=== PATIENT | female | born 1990 | race African-American/Black ===

== ENCOUNTER 2016-05-31 14:40 | Emergency (ER) | payer OTHER ==
[~2016-05-31] VITALS: Ht 165.1 cm; Wt 84.8 kg
[~2016-05-31 14:40] MED LIST: BACTRIM,SEPT1 TABLET PO; CELEXA40 MG PO; DEPAKOTE ER500 MG PO; DEPAKOTE250 MG PO; FLAGYL500 MG PO; FLEXERIL10 MG PO; KLONOPIN0.5 M1 PO; NAPROSYN500 MG PO; SEROQUEL100 MG PO; SEROQUEL12.5 MG PO; SEROQUEL200 MG PO; TORADOL10 MG PO; VISTARIL25 MG PO; celexa; depakote; klonopin; seroquel
[2016-05-31] MEDS ORDERED: PAXIL20 MG PO (14:53)
[2016-05-31 15:10] LABS: HEMATOCRIT 31.3 % (36.0-46.0); MCH 29.6 PG (29.0-34.0); MCHC 34.2 G/DL (30.0-36.0); MCV 86.5 FL (83-99); MEAN PLAT.VOLUME 11.1 uM^3 (9.5-12.4); PLATELET COUNT 285 K/uL (156-360); RBC DIS.WIDTH-CV 13.5 % (11.8-14.6); RBC DIS.WIDTH-SD 41.3 % (39-53); RED BLOOD COUNT 3.62 M/uL (3.80-5.20); WHITE BLOOD COUNT 21.8 K/uL (4.1-10.2)
[2016-05-31 15:18] LABS: CHLORIDE 105 mEq/L (99-109); POTASSIUM 3.4 mEq/L (3.7-5.4); SODIUM 138 mEq/L (136-147)
[2016-05-31 15:21] LABS: GLUCOSE 103 mg/dL (70-99)
[2016-05-31 15:22] LABS: ANION GAP 14 MEQ/L (2-14)
[2016-05-31 15:23] LABS: TOTAL BILIRUBIN 0.6 mg/dL (0.0-1.0)
[2016-05-31 15:24] LABS: ALKALINE PHOSPHATASE 118 IU/L (3-129); GFR ESTIMATE (CALCULATED) > 59 mL/min/
[2016-05-31 15:25] LABS: ADD MIUA? YES; BILIRUBIN NEGATIVE; BLOOD LARGE; COLOR DK YELLOW ((YELLOW)); GLUCOSE (STRIP) NEGATIVE; KETONES 15; LEUKOCYTES LARGE; NITRITE POSITIVE; PROTEIN (STRIP) >=300; SPECIFIC GRAVITY 1.013 (1.000-1.030)
[2016-05-31 15:25] LABS: UREA NITROGEN (BUN) 27 mg/dL (9-23)
[2016-05-31 15:34] LABS: QUANTITATIVE HCG < 4.0 MIU/ML
[2016-05-31 15:48] LABS: BACTERIA 2+; CASTS NONE SEEN /LPF; CRYSTALS NONE SEEN; EPITHELIAL CELLS 1+; MUCUS NONE SEEN; RED BLOOD CELLS 0-5 /HPF (0-5); UCUL ADDED? YES; WHITE BLOOD CELLS TNTC /HPF (0-5)
[2016-05-31] MEDS ORDERED: ZOFRAN4 MG PO (16:58)
[2016-05-31] MEDS ORDERED: VENTOLIN HFA18 GM IH (16:58)
[2016-05-31] MEDS ORDERED: LEVAQUIN750 MG PO (16:58)
[2016-05-31] MEDS ORDERED: TYLENOL WITH C1 EACH PO (17:23)
[2016-05-31 17:46] VITALS: BP 119/76
== END 2016-05-31 17:57 | disposition home or self-care (01) ==
LOC: RME 14:40 → EME 14:40 → RME 17:57
DX: N39.0 Urinary tract infection, site not specified (principal); J18.9 Pneumonia, unspecified organism
CPT/HCPCS: 71020; 80053; 81003; 84702; 85027; 87077; 87086; 87186; 94640; 99281; 99284; J2405; J7030

== ENCOUNTER 2016-06-03 19:09 | Inpatient (IN) | payer OTHER ==
[~2016-06-03] VITALS: Ht 165.1 cm; Wt 88.0 kg
[~2016-06-03 19:09] MED LIST changes: +LEVAQUIN750 MG PO; +PAXIL20 MG PO; +TYLENOL WITH C1 EACH PO; +VENTOLIN HFA18 GM IH; +ZOFRAN4 MG PO
[2016-06-03 22:12] LABS: HEMATOCRIT 26.5 % (36.0-46.0); MCH 29.4 PG (29.0-34.0); MCHC 35.1 G/DL (30.0-36.0); MCV 83.9 FL (83-99); MEAN PLAT.VOLUME 10.1 uM^3 (9.5-12.4); PLATELET COUNT 302 K/uL (156-360); RBC DIS.WIDTH-CV 13.9 % (11.8-14.6); RBC DIS.WIDTH-SD 40.5 % (39-53); RED BLOOD COUNT 3.16 M/uL (3.80-5.20); WHITE BLOOD COUNT 17.3 K/uL (4.1-10.2)
[2016-06-03 22:37] LABS: QUANTITATIVE HCG < 4.0 MIU/ML
[2016-06-03 22:42] LABS: CHLORIDE 102 mEq/L (99-109); POTASSIUM 3.1 mEq/L (3.7-5.4); SODIUM 138 mEq/L (136-147)
[2016-06-03 22:44] LABS: GLUCOSE 137 mg/dL (70-99)
[2016-06-03 22:45] LABS: ANION GAP 15 MEQ/L (2-14)
[2016-06-03 22:48] LABS: GFR ESTIMATE (CALCULATED) > 59 mL/min/
[2016-06-03 22:49] LABS: UREA NITROGEN (BUN) 12 mg/dL (9-23)
[2016-06-03] MEDS ORDERED: DEPAKOTE250 MG PO ×2 (23:28)
[2016-06-03] MEDS ORDERED: SEROQUEL12.5 MG PO ×2 (23:28)
[2016-06-03] MEDS ORDERED: DEPAKOTE ER250 MG PO ×2 (23:31)
[2016-06-04] VITALS (8 sets, daily range): BP systolic 115–136; BP diastolic 65–89
[2016-06-04 08:48] LABS: MEAN PLAT.VOLUME 10.6 uM^3 (9.5-12.4); PLATELET COUNT 288 K/uL (156-360)
[2016-06-04 08:53] LABS: Estimated Average Glucose 114 mg/dL (70-123); HEMOGLOBIN A1c (GLYCOHEMOGLOB) 5.6 % HGB (Below 5.7)
[2016-06-04 09:16] LABS: ANION GAP 10 MEQ/L (2-14); CHLORIDE 102 MEQ/L (99-109); GFR ESTIMATE (CALCULATED) > 59 mL/min/; GLUCOSE 125 mg/dL (70-99); SAMPLE HEMOLYSIS CHECK 0; SAMPLE ICTERIC CHECK 0; SAMPLE LIPEMIA CHECK 0; SODIUM 136 MEQ/L (136-147); UREA NITROGEN (BUN) 8 mg/dL (9-23)
[2016-06-04 09:22] LABS: DELETE MACHINE DIFF? YES
[2016-06-04 10:26] LABS: ABS NEUTROPHIL COUNT 7.84; HEMATOCRIT 24.9 % (36.0-46.0); HYPOCHROMASIA 1+; MCH 29.5 PG (29.0-34.0); MCHC 34.9 G/DL (30.0-36.0); MCV 84.4 FL (83-99); MICROCYTOSIS 1+; PLAT.SUFFICIENCY ADEQUATE; RBC DIS.WIDTH-CV 14.1 % (11.8-14.6); RBC DIS.WIDTH-SD 43.2 % (39-53); RED BLOOD COUNT 2.95 M/uL (3.80-5.20); SPHEROCYTES OCC; USER ID BLP; WHITE BLOOD COUNT 15.7 K/uL (4.1-10.2)
[2016-06-04 16:26] LABS: INFLUENZA A VIRAL ANTIGEN NEGATIVE; INFLUENZA B VIRAL ANTIGEN NEGATIVE
[2016-06-04 18:11] LABS: UR CREATININE CONCENTRATION 76.6 MG/DL
[2016-06-05 06:29] LABS: ANION GAP 11 MEQ/L (2-14); CHLORIDE 101 MEQ/L (99-109); GFR ESTIMATE (CALCULATED) > 59 mL/min/; GLUCOSE 87 mg/dL (70-99); SAMPLE HEMOLYSIS CHECK 0; SAMPLE ICTERIC CHECK 0; SAMPLE LIPEMIA CHECK 0; SODIUM 137 MEQ/L (136-147); UREA NITROGEN (BUN) 11 mg/dL (9-23)
[2016-06-05 08:02] VITALS: BP 124/67
[2016-06-05 09:14] LABS: HBSG INDEX 0.16; HIV INDEX 0.11; HIV-1/2 AB/AG COMBO Nonreactive; HPCA INDEX 0.13
[2016-06-05 10:12] LABS: HEMATOCRIT 25.2 % (36.0-46.0); MCH 29.4 PG (29.0-34.0); MCHC 34.5 G/DL (30.0-36.0); MCV 85.1 FL (83-99); MEAN PLAT.VOLUME 10.2 uM^3 (9.5-12.4); PLATELET COUNT 287 K/uL (156-360); RBC DIS.WIDTH-CV 14.5 % (11.8-14.6); RBC DIS.WIDTH-SD 44.6 % (39-53); RED BLOOD COUNT 2.96 M/uL (3.80-5.20); WHITE BLOOD COUNT 19.5 K/uL (4.1-10.2)
[2016-06-05 10:50] LABS: ABS NEUTROPHIL COUNT 14.64; EOSINOPHIL (%) 0.5 % (0-5); EOSINOPHIL COUNT 0.1 K/uL (0-0.3); IMMATURE GRANULOCYTE (%) 6.4 % (0.0-0.7); IMMATURE GRANULOCYTE COUNT 1.3 K/uL; LYMPHOCYTE COUNT 2.4 K/uL (1.0-2.8); MONOCYTE (%) 18.2 % (3-12); MONOCYTE COUNT 3.6 K/uL (0-0.8); NEUTROPHIL (%) 62.4 % (45-76); NEUTROPHIL COUNT 12.2 K/uL (1.8-6.4); PLAT.SUFFICIENCY ADEQUATE; USER ID STC
[2016-06-05 15:21] VITALS: BP 114/61
== END 2016-06-05 17:11 | disposition left against medical advice (07) | DRG 871 ==
LOC: EME 19:09 → 3EAST 06-04 00:27 → EDOF 06-04 00:27 → 3EAST 06-04 02:42
PROVIDERS: Emergency Medicine; Internal Medicine; Internal Medicine Nephrology; Physician Assistant
DX: A41.51 Sepsis due to Escherichia coli [E. coli] (principal); N17.0 Acute kidney failure with tubular necrosis; J18.9 Pneumonia, unspecified organism; Q61.3 Polycystic kidney, unspecified; N10 Acute pyelonephritis; E86.0 Dehydration; F31.9 Bipolar disorder, unspecified; R80.9 Proteinuria, unspecified; E87.6 Hypokalemia; R73.9 Hyperglycemia, unspecified; D64.9 Anemia, unspecified; R10.33 Periumbilical pain; Z91.19 Patient's noncompliance with other medical treatment and regimen; E83.51 Hypocalcemia
CPT/HCPCS: 71020; 74176; 76770; 80048; 80164; 81003; 82570; 83036; 83605; 84100; 84156; 84702; 85025; 85027; 86703; 86803; 87040; 87340; 87502; 94640; 94640 76; 94799; 99202; 99281; 99285; J0696; J1644; J1956; J2270; J2405; J7030; J7050

== ENCOUNTER 2016-06-08 02:28 | Inpatient (IN) | payer OTHER ==
[~2016-06-08] VITALS: Ht 165.1 cm; Wt 82.8 kg
[~2016-06-08 02:28] MED LIST changes: +DEPAKOTE ER250 MG PO
[2016-06-08 03:19] LABS: HEMATOCRIT 27.1 % (36.0-46.0); MCH 28.8 PG (29.0-34.0); MCHC 33.2 G/DL (30.0-36.0); MCV 86.9 FL (83-99); RBC DIS.WIDTH-CV 14.2 % (11.8-14.6); RED BLOOD COUNT 3.12 M/uL (3.80-5.20); WHITE BLOOD COUNT 22.7 K/uL (4.1-10.2)
[2016-06-08 03:21] LABS: MEAN PLAT.VOLUME 9.7 uM^3 (9.5-12.4); PLATELET COUNT 442 K/uL (156-360)
[2016-06-08 03:29] LABS: CHLORIDE 100 mEq/L (99-109); POTASSIUM 4.3 mEq/L (3.7-5.4); SODIUM 135 mEq/L (136-147)
[2016-06-08 03:30] LABS: GLUCOSE 91 mg/dL (70-99)
[2016-06-08 03:32] LABS: ANION GAP 10 MEQ/L (2-14)
[2016-06-08 03:34] LABS: GFR ESTIMATE (CALCULATED) > 59 mL/min/
[2016-06-08 03:35] LABS: UREA NITROGEN (BUN) 12 mg/dL (9-23)
[2016-06-08 05:39] LABS: TROP-I INTERPRETATION NEGATIVE; TROPONIN-I < 0.01 ng/mL (0.0-0.30)
[2016-06-08] MEDS ORDERED: SEROQUEL100 MG PO (07:34)
[2016-06-08 11:31] VITALS: BP 108/64
[2016-06-08 15:45] VITALS: BP 114/70
[2016-06-08 19:43] VITALS: BP 106/64
[2016-06-08 23:43] VITALS: BP 107/69
[2016-06-09 08:00] VITALS: BP 113/74
[2016-06-09 08:15] LABS: ANION GAP 8 MEQ/L (2-14); CHLORIDE 106 MEQ/L (99-109); GFR ESTIMATE (CALCULATED) > 59 mL/min/; GLUCOSE 81 mg/dL (70-99); SAMPLE HEMOLYSIS CHECK 0; SAMPLE ICTERIC CHECK 0; SAMPLE LIPEMIA CHECK 0; SODIUM 139 MEQ/L (136-147); UREA NITROGEN (BUN) 9 mg/dL (9-23)
[2016-06-09 08:16] LABS: POTASSIUM 5.3 MEQ/L (3.7-5.4)
[2016-06-09 08:28] LABS: EOSINOPHIL (%) 1.2 % (0-5); EOSINOPHIL COUNT 0.2 K/uL (0-0.3); HEMATOCRIT 25.1 % (36.0-46.0); IMMATURE GRANULOCYTE (%) 1.8 % (0.0-0.7); IMMATURE GRANULOCYTE COUNT 0.2 K/uL; LYMPHOCYTE COUNT 3.1 K/uL (1.0-2.8); MCH 28.9 PG (29.0-34.0); MCHC 33.1 G/DL (30.0-36.0); MCV 87.5 FL (83-99); MONOCYTE (%) 8.6 % (3-12); MONOCYTE COUNT 1.1 K/uL (0-0.8); NEUTROPHIL (%) 64.7 % (45-76); NEUTROPHIL COUNT 8.5 K/uL (1.8-6.4); PLATELET COUNT 515 K/uL (156-360); RBC DIS.WIDTH-CV 14.7 % (11.8-14.6); RBC DIS.WIDTH-SD 47.2 % (39-53); RED BLOOD COUNT 2.87 M/uL (3.80-5.20)
[2016-06-09 08:29] LABS: WHITE BLOOD COUNT 13.1 K/uL (4.1-10.2)
[2016-06-09 10:06] LABS: FERRITIN 401 NG/ML (10-291); IRON 24 MCG/DL (35-150)
[2016-06-09 15:51] VITALS: BP 94/55
[2016-06-09 20:07] VITALS: BP 112/78
[2016-06-09 23:13] VITALS: BP 116/75
[2016-06-10 02:52] VITALS: BP 117/71
[2016-06-10 07:55] VITALS: BP 114/62
[2016-06-10 09:23] LABS: HEMATOCRIT 26.3 % (36.0-46.0); MCH 28.8 PG (29.0-34.0); MCHC 33.1 G/DL (30.0-36.0); MCV 87.1 FL (83-99); MEAN PLAT.VOLUME 9.9 uM^3 (9.5-12.4); PLATELET COUNT 653 K/uL (156-360); RBC DIS.WIDTH-CV 14.4 % (11.8-14.6); RBC DIS.WIDTH-SD 45.8 % (39-53); RED BLOOD COUNT 3.02 M/uL (3.80-5.20); WHITE BLOOD COUNT 11.9 K/uL (4.1-10.2)
[2016-06-10 11:56] VITALS: BP 119/71
[2016-06-10] MEDS ORDERED: TYLENOL REGULA325 MG PO (15:01)
[2016-06-10] MEDS ORDERED: CEFTIN250 MG PO (15:04)
[2016-06-10 16:31] VITALS: BP 105/64
== END 2016-06-10 18:52 | disposition home or self-care (01) | DRG 689 ==
LOC: EME 02:28 → EDOF 05:27 → 5SOUTH 05:27
PROVIDERS: Emergency Medicine; Hospitalist; Physician Assistant Medical
DX: N39.0 Urinary tract infection, site not specified (principal); J18.9 Pneumonia, unspecified organism; Q61.3 Polycystic kidney, unspecified; D50.9 Iron deficiency anemia, unspecified; F31.9 Bipolar disorder, unspecified
CPT/HCPCS: 71020; 71275; 74000; 80048; 80202; 81003; 82607; 82728; 82746; 83540; 83605; 84466; 84484; 85025; 85027; 87040; 87449; 93005; 99202; 99281; 99285; J0456; J0692; J0696; J1650; J3370; J7030; J7050

== ENCOUNTER 2016-11-02 17:49 | Emergency (ER) | payer OTHER ==
[~2016-11-02] VITALS: Ht 162.6 cm; Wt 82.1 kg
[~2016-11-02 17:49] MED LIST changes: +CEFTIN250 MG PO; +TYLENOL REGULA325 MG PO
[2016-11-02 19:49] LABS: HEMATOCRIT 35.7 % (36.0-46.0); MCH 30.1 PG (29.0-34.0); MCHC 33.3 G/DL (30.0-36.0); MCV 90.4 FL (83-99); MEAN PLAT.VOLUME 10.6 uM^3 (9.5-12.4); PLATELET COUNT 277 K/uL (156-360); RBC DIS.WIDTH-CV 12.1 % (11.8-14.6); RBC DIS.WIDTH-SD 40.1 % (39-53); RED BLOOD COUNT 3.95 M/uL (3.80-5.20); WHITE BLOOD COUNT 7.4 K/uL (4.1-10.2)
[2016-11-02 20:03] LABS: CHLORIDE 107 mEq/L (99-109); POTASSIUM 4.3 mEq/L (3.7-5.4); SODIUM 139 mEq/L (136-147)
[2016-11-02 20:05] LABS: GLUCOSE 77 mg/dL (70-99)
[2016-11-02 20:06] LABS: ANION GAP 11 MEQ/L (2-14)
[2016-11-02 20:07] LABS: TOTAL BILIRUBIN 0.5 mg/dL (0.0-1.0)
[2016-11-02 20:08] LABS: ALKALINE PHOSPHATASE 53 IU/L (3-129)
[2016-11-02 20:09] LABS: GFR ESTIMATE (CALCULATED) > 59 mL/min/
[2016-11-02 20:10] LABS: UREA NITROGEN (BUN) 15 mg/dL (9-23)
[2016-11-02 22:56] LABS: LIPASE 15 U/L (1.0-51.0)
[2016-11-02 23:38] LABS: ADD MIUA? NO; BILIRUBIN NEGATIVE; BLOOD NEGATIVE; COLOR YELLOW ((YELLOW)); GLUCOSE (STRIP) NEGATIVE; KETONES NEGATIVE; LEUKOCYTES NEGATIVE; NITRITE NEGATIVE; PROTEIN (STRIP) NEGATIVE; SPECIFIC GRAVITY 1.015 (1.000-1.030); UCUL ADDED? NO; UROBILINOGEN 0.2 MG/DL (0.2-1.0)
[2016-11-03 00:48] VITALS: BP 142/89
== END 2016-11-03 00:49 | disposition home or self-care (01) ==
LOC: EXP 17:49 → EME 17:49 → EXP 11-03 00:49
DX: O26.891 Other specified pregnancy related conditions, first trimester (principal); R10.31 Right lower quadrant pain; R19.7 Diarrhea, unspecified
CPT/HCPCS: 76801; 80053; 81003; 83690; 84702; 85027; 86900; 86901; 99281; 99283

== ENCOUNTER 2016-11-17 21:31 | Emergency (ER) | payer OTHER ==
[~2016-11-17] VITALS: Ht 162.6 cm; Wt 85.8 kg
[2016-11-17 22:23] LABS: BILIRUBIN NEGATIVE; BLOOD NEGATIVE; COLOR YELLOW ((YELLOW)); GLUCOSE (STRIP) NEGATIVE; KETONES NEGATIVE; LEUKOCYTES NEGATIVE; NITRITE NEGATIVE; PROTEIN (STRIP) 30; SPECIFIC GRAVITY 1.015 (1.000-1.030); UROBILINOGEN 0.2 MG/DL (0.2-1.0)
[2016-11-17 22:26] LABS: ADD MIUA? NO
[2016-11-17 22:47] LABS: HEMATOCRIT 30.2 % (36.0-46.0); MCH 29.7 PG (29.0-34.0); MCHC 33.1 G/DL (30.0-36.0); MCV 89.6 FL (83-99); MEAN PLAT.VOLUME 10.9 uM^3 (9.5-12.4); PLATELET COUNT 263 K/uL (156-360); RBC DIS.WIDTH-CV 12.2 % (11.8-14.6); RBC DIS.WIDTH-SD 39.8 % (39-53); RED BLOOD COUNT 3.37 M/uL (3.80-5.20)
[2016-11-17 23:00] LABS: CHLORIDE 105 mEq/L (99-109); POTASSIUM 3.5 mEq/L (3.7-5.4); SODIUM 136 mEq/L (136-147)
[2016-11-17 23:01] LABS: GLUCOSE 78 mg/dL (70-99)
[2016-11-17 23:03] LABS: ANION GAP 9 MEQ/L (2-14)
[2016-11-17 23:05] LABS: GFR ESTIMATE (CALCULATED) > 59 mL/min/
[2016-11-17 23:06] LABS: UREA NITROGEN (BUN) 11 mg/dL (9-23)
[2016-11-17 23:35] LABS: QUANTITATIVE HCG 39603.2 MIU/ML
[2016-11-18] MEDS ORDERED: REGLAN10 MG PO
[2016-11-18 00:34] VITALS: BP 135/89
== END 2016-11-18 00:37 | disposition home or self-care (01) ==
LOC: EME 21:31
PROVIDERS: Physician Assistant
DX: O26.91 Pregnancy related conditions, unspecified, first trimester (principal); R11.2 Nausea with vomiting, unspecified; Z3A.01 Less than 8 weeks gestation of pregnancy; J45.909 Unspecified asthma, uncomplicated
CPT/HCPCS: 80048; 81003; 84702; 85027; 99281; 99284; J2405; J7030

== ENCOUNTER 2016-11-27 21:54 | Emergency (ER) | payer OTHER ==
[~2016-11-27] VITALS: Ht 162.6 cm; Wt 82.3 kg
[~2016-11-27 21:54] MED LIST changes: +REGLAN10 MG PO
[2016-11-28 00:54] LABS: HEMATOCRIT 29.2 % (36.0-46.0); MCH 30.4 PG (29.0-34.0); MCHC 33.9 G/DL (30.0-36.0); MCV 89.6 FL (83-99); MEAN PLAT.VOLUME 10.4 uM^3 (9.5-12.4); PLATELET COUNT 265 K/uL (156-360); RBC DIS.WIDTH-CV 11.8 % (11.8-14.6); RBC DIS.WIDTH-SD 38.4 % (39-53); RED BLOOD COUNT 3.26 M/uL (3.80-5.20); WHITE BLOOD COUNT 9.5 K/uL (4.1-10.2)
[2016-11-28 01:03] LABS: CHLORIDE 107 mEq/L (99-109); POTASSIUM 3.7 mEq/L (3.7-5.4); SODIUM 137 mEq/L (136-147)
[2016-11-28 01:04] LABS: GLUCOSE 86 mg/dL (70-99)
[2016-11-28 01:06] LABS: ANION GAP 7 MEQ/L (2-14)
[2016-11-28 01:08] LABS: GFR ESTIMATE (CALCULATED) > 59 mL/min/
[2016-11-28 01:09] LABS: UREA NITROGEN (BUN) 10 mg/dL (9-23)
[2016-11-28 01:35] LABS: QUANTITATIVE HCG 134150.6 MIU/ML
[2016-11-28] MEDS ORDERED: PHENERGAN12.5 MG PR (01:35)
[2016-11-28 01:46] VITALS: BP 151/93
== END 2016-11-28 01:47 | disposition home or self-care (01) ==
LOC: EME 21:54
PROVIDERS: Nurse Practitioner Family
DX: O21.0 Mild hyperemesis gravidarum (principal); Z3A.08 8 weeks gestation of pregnancy
CPT/HCPCS: 80048; 84702; 85027; 99281; 99284; J2405; J7030

== ENCOUNTER 2017-03-05 17:35 | Outpatient (CLI) | payer OTHER ==
[~2017-03-05] VITALS: Ht 162.6 cm; Wt 86.2 kg
[~2017-03-05 17:35] MED LIST changes: +PHENERGAN12.5 MG PR
[2017-03-05 17:53] VITALS: BP 135/92
[2017-03-05] MEDS ORDERED: PRENATAL TABLE1 EAC3 PO (18:33)
[2017-03-05 18:44] LABS: ADD MIUA? YES; BILIRUBIN NEGATIVE; BLOOD NEGATIVE; COLOR YELLOW ((YELLOW)); GLUCOSE (STRIP) NEGATIVE; KETONES NEGATIVE; LEUKOCYTES TRACE; NITRITE NEGATIVE; PROTEIN (STRIP) NEGATIVE; SPECIFIC GRAVITY 1.005 (1.000-1.030); UROBILINOGEN 0.2 MG/DL (0.2-1.0)
[2017-03-05 18:53] LABS: BACTERIA RARE /HPF; EPITHELIAL CELLS RARE /HPF; MUCUS NONE SEEN /LPF; RED BLOOD CELLS NONE SEEN /HPF (0-5); UCUL ADDED? YES
[2017-03-05 19:00] LABS: EOSINOPHIL (%) 0.4 % (0-5); IMMATURE GRANULOCYTE (%) 0.4 % (0.0-0.7); INSTRUMENT ABS NEUTROPHIL CT 6.9 K/uL; MCH 30.3 PG (29.0-34.0); MCHC 33.1 G/DL (30.0-36.0); MCV 91.5 FL (83-99); MONOCYTE (%) 6.4 % (3-12); MONOCYTE COUNT 0.6 K/uL (0-0.8); NEUTROPHIL (%) 71.7 % (45-76); NEUTROPHIL COUNT 6.9 K/uL (1.8-6.4); PLATELET COUNT 291 K/uL (156-360); RBC DIS.WIDTH-CV 13.6 % (11.8-14.6); RBC DIS.WIDTH-SD 45.5 % (39-53); RED BLOOD COUNT 2.84 M/uL (3.80-5.20); WHITE BLOOD COUNT 9.6 K/uL (4.1-10.2)
[2017-03-05 19:00] LABS: AMPHETAMINE NEGATIVE (500 ng/mL); BARBITURATES NEGATIVE (200 ng/mL); BENZODIAZEPINES NEGATIVE (150 ng/mL); COCAINE NEGATIVE (150 ng/mL); INTERNAL CONTROLS VALID? YES; METHADONE NEGATIVE (200 ng/mL); METHAMPHETAMINE NEGATIVE (500 ng/mL); OPIATES (MORPHINE) NEGATIVE (100 ng/mL); OXYCODONE NEGATIVE (100 ng/mL); PHENCYCLIDINE NEGATIVE (25 ng/mL); PROPOXYPHENE NEGATIVE (300 ng/mL); THC CANNABINOIDS NEGATIVE (50 ng/mL); TRICYCLIC ANTIDEPRESSANTS NEGATIVE (300 ng/mL)
[2017-03-05 19:15] LABS: ALKALINE PHOSPHATASE 51 IU/L (3-129); AMYLASE 31 IU/L (1-118); ANION GAP 9 MEQ/L (2-14); CHLORIDE 108 MEQ/L (99-109); GFR ESTIMATE (CALCULATED) > 59 mL/min/; GLUCOSE 78 mg/dL (70-99); LIPASE 12 U/L (1.0-51.0); POTASSIUM 3.6 MEQ/L (3.7-5.4); SAMPLE HEMOLYSIS CHECK 0; SAMPLE ICTERIC CHECK 0; SAMPLE LIPEMIA CHECK 0; SODIUM 136 MEQ/L (136-147); TOTAL BILIRUBIN 0.3 MG/DL (0.0-1.0); UREA NITROGEN (BUN) 9 mg/dL (9-23)
[2017-03-05] MEDS ORDERED: ENDOCET 5-3251 EACH PO (20:19)
[2017-03-05] MEDS ORDERED: IBUPROFEN800 MG PO (20:19)
[2017-03-05 22:22] VITALS: BP 127/84
[2017-03-05 23:27] VITALS: BP 121/75
[2017-03-06 07:18] VITALS: BP 110/65
[2017-03-06 08:51] LABS: EOSINOPHIL (%) 0.7 % (0-5); EOSINOPHIL COUNT 0.1 K/uL (0-0.3); HEMATOCRIT 23.2 % (36.0-46.0); IMMATURE GRANULOCYTE (%) 0.6 % (0.0-0.7); IMMATURE GRANULOCYTE COUNT 0.1 K/uL; INSTRUMENT ABS NEUTROPHIL CT 5.5 K/uL; LYMPHOCYTE COUNT 2.3 K/uL (1.0-2.8); MCH 31.6 PG (29.0-34.0); MCHC 34.5 G/DL (30.0-36.0); MCV 91.7 FL (83-99); MEAN PLAT.VOLUME 9.8 uM^3 (9.5-12.4); MONOCYTE (%) 7.2 % (3-12); MONOCYTE COUNT 0.6 K/uL (0-0.8); NEUTROPHIL (%) 64.7 % (45-76); NEUTROPHIL COUNT 5.5 K/uL (1.8-6.4); PLATELET COUNT 261 K/uL (156-360); RBC DIS.WIDTH-CV 13.7 % (11.8-14.6); RBC DIS.WIDTH-SD 46.3 % (39-53); RED BLOOD COUNT 2.53 M/uL (3.80-5.20); WHITE BLOOD COUNT 8.5 K/uL (4.1-10.2)
[2017-03-06 15:20] VITALS: BP 97/53
[2017-03-06] MEDS ORDERED: ENDOCET 5-3251 EACH PO (16:36)
== END 2017-03-06 17:00 | disposition home or self-care (01) ==
LOC: LDRP-OP 17:35 → 2WEST 17:36
PROVIDERS: Midwife; Obstetrics & Gynecology
DX: O26.832 Pregnancy related renal disease, second trimester (principal); Q61.3 Polycystic kidney, unspecified; N23 Unspecified renal colic; O99.342 Other mental disorders complicating pregnancy, second trimester; Z3A.21 21 weeks gestation of pregnancy; F31.9 Bipolar disorder, unspecified; F41.0 Panic disorder [episodic paroxysmal anxiety]; F42.9 Obsessive-compulsive disorder, unspecified; Z86.19 Personal history of other infectious and parasitic diseases; Z68.32 Body mass index [BMI] 32.0-32.9, adult
CPT/HCPCS: 59025; 76705; 76770; 76805; 80053; 81003; 82150; 83690; 85025; 87086; G0378; J1170; J2405; J7030; J7120

== ENCOUNTER → 2017-04-21 | Outpatient (CLI) | payer OTHER ==
[~2017-04-21] VITALS: Ht 160.7 cm; Wt 82.0 kg
[~2017-04-21] MED LIST changes: +ENDOCET 5-3251 EACH PO; +IBUPROFEN800 MG PO; +PRENATAL TABLE1 EAC3 PO
[2017-04-21 10:46] VITALS: BP 131/71
== END | disposition home or self-care (01) ==
LOC: IVINF 10:00
DX: Z31.82 Encounter for Rh incompatibility status (principal); Z3A.00 Weeks of gestation of pregnancy not specified; Z67.91 Unspecified blood type, Rh negative
CPT/HCPCS: 96372; J2790

== ENCOUNTER 2017-05-12 08:08 | Emergency (ER) | payer OTHER ==
[~2017-05-12] VITALS: Ht 162.6 cm; Wt 77.1 kg
[2017-05-12 11:05] LABS: APPEARANCE CLEAR ((CLEAR)); BILIRUBIN NEGATIVE; BLOOD NEGATIVE; COLOR YELLOW ((YELLOW)); GLUCOSE (STRIP) NEGATIVE; KETONES 5; LEUKOCYTES TRACE; NITRITE NEGATIVE; PROTEIN (STRIP) 30; SPECIFIC GRAVITY 1.014 (1.000-1.030); UROBILINOGEN 0.2 MG/DL (0.2-1.0)
[2017-05-12 11:08] LABS: BACTERIA NONE SEEN /HPF; EPITHELIAL CELLS RARE /HPF; HYALINE CASTS 0-5 /LPF; MUCUS TRACE /LPF; RED BLOOD CELLS 0-5 /HPF (0-5); UCUL ADDED? YES; WHITE BLOOD CELLS 20-30 /HPF (0-5)
[2017-05-12] MEDS ORDERED: KEFLEX500 MG PO (12:15)
[2017-05-12] MEDS ORDERED: FLEXERIL10 MG PO (12:15)
[2017-05-12 12:27] VITALS: BP 125/86
== END 2017-05-12 12:28 | disposition home or self-care (01) ==
LOC: EME 08:08
PROVIDERS: Nurse Practitioner Family
DX: O99.513 Diseases of the respiratory system complicating pregnancy, third trimester (principal); J10.1 Influenza due to other identified influenza virus with other respiratory manifestations; O99.89 Other specified diseases and conditions complicating pregnancy, childbirth and the puerperium; H66.91 Otitis media, unspecified, right ear; O23.43 Unspecified infection of urinary tract in pregnancy, third trimester; Z3A.31 31 weeks gestation of pregnancy; J45.909 Unspecified asthma, uncomplicated; O99.343 Other mental disorders complicating pregnancy, third trimester; F41.9 Anxiety disorder, unspecified
CPT/HCPCS: 81003; 87086; 87502; 87651 90; 99281; 99285; J7030

== ENCOUNTER 2017-06-28 02:34 | Inpatient (IN) | payer OTHER ==
[~2017-06-28] VITALS: Ht 162.6 cm; Wt 86.6 kg
[2017-06-28] VITALS (23 sets, daily range): BP systolic 118–149; BP diastolic 66–95
[~2017-06-28 02:34] MED LIST changes: +KEFLEX500 MG PO
[2017-06-28] MEDS ORDERED: PROZAC20 MG PO (03:07)
[2017-06-28 03:21] LABS: BASOPHIL (%) 0.1 % (0-1); EOSINOPHIL (%) 1.2 % (0-5); EOSINOPHIL COUNT 0.1 K/uL (0-0.3); HEMATOCRIT 27.1 % (36.0-46.0); IMMATURE GRANULOCYTE (%) 0.5 % (0.0-0.7); LYMPHOCYTE (%) 28.1 % (15-42); LYMPHOCYTE COUNT 2.4 K/uL (1.0-2.8); MCH 30.4 PG (29.0-34.0); MCHC 33.2 G/DL (30.0-36.0); MCV 91.6 FL (83-99); MONOCYTE (%) 7.2 % (3-12); MONOCYTE COUNT 0.6 K/uL (0-0.8); NEUTROPHIL (%) 62.9 % (45-76); NEUTROPHIL COUNT 5.3 K/uL (1.8-6.4); PLATELET COUNT 264 K/uL (156-360); RBC DIS.WIDTH-CV 13.3 % (11.8-14.6); RED BLOOD COUNT 2.96 M/uL (3.80-5.20); WHITE BLOOD COUNT 8.4 K/uL (4.1-10.2)
[2017-06-28 05:15] LABS: ALBUMIN 3.2 g/dL (3.2-4.8)
[2017-06-28 05:16] LABS: CHLORIDE 112 mEq/L (99-109); POTASSIUM 4.3 mEq/L (3.7-5.4); SODIUM 138 mEq/L (136-147)
[2017-06-28 05:18] LABS: GLUCOSE 93 mg/dL (70-99); TOTAL PROTEIN 5.8 g/dL (6.4-8.3)
[2017-06-28 05:20] LABS: TOTAL BILIRUBIN 0.3 mg/dL (0.0-1.0)
[2017-06-28 05:21] LABS: ALKALINE PHOSPHATASE 191 IU/L (3-129)
[2017-06-28 05:22] LABS: CREATININE 0.7 mg/dL (0.6-1.3); GFR ESTIMATE (CALCULATED) > 59 mL/min/
[2017-06-28 05:23] LABS: AST (GOT) 16 IU/L (2-34); UREA NITROGEN (BUN) 8 mg/dL (9-23)
[2017-06-28 05:25] LABS: ALT (GPT) 12 IU/L (3-49)
[2017-06-28] MEDS ORDERED: IBUPROFEN800 MG PO (09:17)
[2017-06-29 07:19] LABS: BASOPHIL (%) 0.2 % (0-1); EOSINOPHIL (%) 1.2 % (0-5); EOSINOPHIL COUNT 0.1 K/uL (0-0.3); HEMATOCRIT 24.6 % (36.0-46.0); HEMOGLOBIN 8.5 G/DL (11.9-15.5); IMMATURE GRANULOCYTE (%) 0.9 % (0.0-0.7); LYMPHOCYTE (%) 26.8 % (15-42); LYMPHOCYTE COUNT 2.8 K/uL (1.0-2.8); MCH 31.7 PG (29.0-34.0); MCHC 34.6 G/DL (30.0-36.0); MCV 91.8 FL (83-99); MONOCYTE (%) 7.1 % (3-12); MONOCYTE COUNT 0.7 K/uL (0-0.8); NEUTROPHIL (%) 63.8 % (45-76); NEUTROPHIL COUNT 6.6 K/uL (1.8-6.4); PLATELET COUNT 257 K/uL (156-360); RBC DIS.WIDTH-CV 13.4 % (11.8-14.6); RBC DIS.WIDTH-SD 44.8 % (39-53); RED BLOOD COUNT 2.68 M/uL (3.80-5.20); WHITE BLOOD COUNT 10.3 K/uL (4.1-10.2)
[2017-06-29 07:39] VITALS: BP 113/82
== END 2017-06-29 14:15 | disposition home or self-care (01) | DRG 775 ==
LOC: LDRP-OP → 2WEST 02:35 → LDRP-OP 08-11 20:01
PROVIDERS: Midwife; Nurse Practitioner
PROC: 10E0XZZ Delivery of Products of Conception, External Approach (ICD-10-PCS; principal; 2017-06-28)
PROC: 3E0R3BZ Introduction of Anesthetic Agent into Spinal Canal, Percutaneous Approach (ICD-10-PCS; principal; 2017-06-28)
PROC: 00HU33Z Insertion of Infusion Device into Spinal Canal, Percutaneous Approach (ICD-10-PCS; principal; 2017-06-28)
DX: O77.0 Labor and delivery complicated by meconium in amniotic fluid (principal); O99.89 Other specified diseases and conditions complicating pregnancy, childbirth and the puerperium; Q61.3 Polycystic kidney, unspecified; O99.02 Anemia complicating childbirth; D50.9 Iron deficiency anemia, unspecified; O99.344 Other mental disorders complicating childbirth; F31.9 Bipolar disorder, unspecified; Z3A.37 37 weeks gestation of pregnancy; Z37.0 Single live birth
CPT/HCPCS: 80053; 83030; 85025; 86850; 86870; 86900; 86901; C1755; J1200; J2790; J3010; J7120

== ENCOUNTER 2017-11-17 00:33 | Emergency (ER) | payer OTHER ==
[~2017-11-17] VITALS: Ht 162.6 cm; Wt 79.0 kg
[~2017-11-17 00:33] MED LIST changes: +PROZAC20 MG PO
[2017-11-17 01:36] LABS: HEMATOCRIT 30.8 % (36.0-46.0); HEMOGLOBIN 10.6 G/DL (11.9-15.5); MCH 31.7 PG (29.0-34.0); MCHC 34.4 G/DL (30.0-36.0); MCV 92.2 FL (83-99); PLATELET COUNT 257 K/uL (156-360); RBC DIS.WIDTH-CV 11.7 % (11.8-14.6); RBC DIS.WIDTH-SD 39.8 % (39-53); RED BLOOD COUNT 3.34 M/uL (3.80-5.20); WHITE BLOOD COUNT 6.1 K/uL (4.1-10.2)
[2017-11-17 01:44] LABS: ALBUMIN 4.5 g/dL (3.2-4.8); CHLORIDE 107 mEq/L (99-109); POTASSIUM 3.5 mEq/L (3.7-5.4); SODIUM 139 mEq/L (136-147)
[2017-11-17 01:45] LABS: D-DIMER ELISA < 150.00 ng/mLDDU (<230)
[2017-11-17 01:47] LABS: GLUCOSE 89 mg/dL (70-99); TOTAL PROTEIN 7.5 g/dL (6.4-8.3)
[2017-11-17 01:49] LABS: TOTAL BILIRUBIN 0.3 mg/dL (0.0-1.0)
[2017-11-17 01:50] LABS: ALKALINE PHOSPHATASE 52 IU/L (3-129); SERUM ETHYL ALCOHOL 54 mg/dL
[2017-11-17 01:51] LABS: CREATININE 0.8 mg/dL (0.6-1.3); GFR ESTIMATE (CALCULATED) > 59 mL/min/
[2017-11-17 01:52] LABS: AST (GOT) 36 IU/L (2-34); UREA NITROGEN (BUN) 18 mg/dL (9-23)
[2017-11-17 01:53] LABS: ALT (GPT) 37 IU/L (3-49)
[2017-11-17 01:54] LABS: LIPASE 325 U/L (1.0-51.0)
[2017-11-17 01:57] LABS: TROP-I INTERPRETATION NEGATIVE; TROPONIN-I < 0.01 ng/mL (0.0-0.30)
[2017-11-17 03:03] LABS: AMPHETAMINE NEGATIVE (500 ng/mL); BARBITURATES NEGATIVE (200 ng/mL); BENZODIAZEPINES NEGATIVE (150 ng/mL); BUPRENORPHINE NEGATIVE (10 ng/mL); COCAINE NEGATIVE (150 ng/mL); METHADONE NEGATIVE (200 ng/mL); METHAMPHETAMINE NEGATIVE (500 ng/mL); OPIATES (MORPHINE) NEGATIVE (100 ng/mL); OXYCODONE NEGATIVE (100 ng/mL); PHENCYCLIDINE NEGATIVE (25 ng/mL); PROPOXYPHENE NEGATIVE (300 ng/mL); THC CANNABINOIDS NEGATIVE (50 ng/mL); TRICYCLIC ANTIDEPRESSANTS NEGATIVE (300 ng/mL)
[2017-11-17] MEDS ORDERED: PROTONIX40 MG PO (04:53)
[2017-11-17 05:17] VITALS: BP 125/88
== END 2017-11-17 05:18 | disposition home or self-care (01) ==
LOC: EME 00:33
PROVIDERS: Emergency Medicine
DX: K85.90 Acute pancreatitis without necrosis or infection, unspecified (principal); F32.9 Major depressive disorder, single episode, unspecified; F41.9 Anxiety disorder, unspecified; J45.909 Unspecified asthma, uncomplicated
CPT/HCPCS: 71046; 74177; 80053; 81025; 83690; 84484; 85027; 85379; 93005; 99281; 99285; G0480; J3010; J7030